=== PATIENT | female | born 1960 | race Asian ===

== ENCOUNTER → 2025-03-25 | Outpatient (CLI) | payer BC ==
[~2025-03-25] MED LIST: IOHEXOL 350 MG/ML 100ML INFUS..BTL IV ONE
--- NOTE | 2025-03-25 18:34 | CARDIOLOGY ---
RAD REPORT: [place] [facility] ANGIO RADIOLOGY REPORT: CORONARY CT ANGIOGRAPHY DATE: Mar 25, 2025 QUALITY: Excellent CLINICAL HISTORY AND INDICATION: [chest pain ] TECHNIQUE: After obtaining a preliminary custom bow maker image, contrast imaging performed on an [employer] [id number] scanner. A dedicated, limited window, coronary imaging protocol was used, with single breath-hold, retrospective ECG gating, and automated arrhythmia rejection. 100 cc of low osmolar contrast agent: Omnipaque 350 was delivered via a 18-gauge IV catheter in the right antecubital fossa, using a power injector and followed by 60 cc of normal saline bolus as a chaser. Collimated images were reformatted at 0.5 mm intervals, and sent to an offline independent workstation for interpretation, using 3D anatomic reconstructions: Curved multiplanar reconstructions, maximum intensity projections, and multiplanar imaging. 20 mg IV metoprolol was administered prior to scanning. 0.8 mg SL nitroglycerin was given. CORONARY ARTERY DESCRIPTIONS: The coronary arteries arise in normal position. Left main coronary artery: Normal caliber vessel that bifurcates into the LAD and LCx. No stenosis. Left anterior descending coronary artery: Normal caliber vessel and gives rise to diagonal and septal branches. No stenosis. Left circumflex coronary artery: Normal caliber, nondominant and gives rise to a large OM branch. No stenosis. Right coronary artery: Large, dominant vessel giving rise to the PL and PDA branches. No stenosis. CAD-RADs: 0, absence of CAD. Thoracic Aorta: Normal diameter. Leslye Bunch MD Cardiovascular Disease [facility] LESLYE BUNCH MD Mar 25, 2025 18:34
== END | disposition home or self-care (01) ==
LOC: RAH 08:32
PROVIDERS: ATTEND Internal Medicine Cardiovascular Disease
DX: R06.02 Shortness of breath (principal); R07.9 Chest pain, unspecified
CPT/HCPCS: 75574; J3490 ×2; Q9967

== ENCOUNTER → 2025-06-17 | Outpatient (CLI) | payer BC ==
--- NOTE | 2025-06-17 18:10 | HMCIMG ---
EXAM: CT Chest Without IV contrast. CLINICAL HISTORY: Solitary pulmonary nodule TECHNIQUE: Axial computed tomography images of the chest without intravenous contrast. COMPARISON: None provided. FINDINGS: LUNGS: A small ground-glass nodule measuring 3 mm along the right lower lobe. The rest of the lungs appear essentially clear. PLEURAL SPACES: No evidence of pneumothorax. No pleural effusion. HEART: No cardiomegaly. No significant pericardial effusion. LYMPH NODES: No lymphadenopathy is evident. UPPER ABDOMEN: The upper abdominal solid organs are unremarkable. BONES: Degenerative changes of visualized spine. IMPRESSION: 1. 3 mm ground-glass nodule in the right lower lobe. LUNG RADS 2: Follow up in 12 months with LDCT. 2. No pulmonary infiltrates or pleural effusions. /Sarah
== END ==
LOC: RAH 13:02
PROVIDERS: ATTEND Internal Medicine Nephrology
DX: R91.1 Solitary pulmonary nodule (principal); N64.4 Mastodynia; M47.814 Spondylosis without myelopathy or radiculopathy, thoracic region
CPT/HCPCS: 71250; 77066